=== PATIENT | female | born 1960 | race Caucasian/White ===

== ENCOUNTER 2021-09-26 07:04 | Day surgery (SDC) | payer OTHER ==
[2021-09-25 12:45] LABS: Absolute Lymphocytes (CBC) 1.9 K/uL (0.7-4.9); Basophils % 0.3 % (0-1.3); Hematocrit 38.5 % (36.0-45.0); Lymphocytes % 40.8 % (15.3-44.8); MPV 5.9 fL (7.6-11.3); RBC Red Blood Cell Count 4.35 M/uL (3.86-4.86)
[2021-09-25 12:58] LABS: Potassium 4.4 mmol/L (3.5-5.1)
--- NOTE | 2021-09-25 13:33 | RAD REPORT ---
EXAM DESCRIPTION: RAD - Chest Pa And Lat (2 Views) - 09/25/2021 12:44 pm CLINICAL HISTORY: PRE-OP, right breast mass COMPARISON: None TECHNIQUE: Frontal and lateral views of the chest were obtained. FINDINGS: The lungs are clear. Heart size is normal and central vasculature is within normal limit s. No pleural effusion or pneumothorax seen. No acute bony finding noted. No aortic abnormality. IMPRESSION: No acute cardiopulmonary process.
[2021-09-26] MEDS ORDERED: Ringers Lactate 1,000 ML IV ONE (07:21)
[2021-09-26] MEDS ORDERED: CEFAZOLIN/NS 1gm 1 GM/50 ML BAG ONE (07:21)
[2021-09-26] MEDS ORDERED: METHYLENE BLUE 0.5% 10 ML AMP ONE (09:26)
[2021-09-26] MEDS ORDERED: propofoL 200 MG/20 ML VIAL IV ONE (09:50)
[2021-09-26] MEDS ORDERED: FENTANYL CITR 100 MCG/2 ML ONE ×2 (09:50→10:46)
[2021-09-26] MEDS ORDERED: ONDANSETRON 4 MG/2 ML VIAL ONE (09:51)
[2021-09-26] MEDS ORDERED: MIDAZOLAM HCL 2 MG/2 ML INJ ONE (09:51)
[2021-09-26] MEDS ORDERED: LIDOCAINE 2% MPF 5 ML VIAL ONE (09:51)
[2021-09-26] MEDS ORDERED: NEOSTIGMINE 1 MG/ML -5 ML ONE (09:52)
[2021-09-26] MEDS ORDERED: ROCURONIUM 50 MG/5 ML VIAL IV ONE (09:52)
[2021-09-26] MEDS ORDERED: GLYCOPYRROLATE 0.2 MG/ML SYR ONE (09:52)
[2021-09-26] MEDS ORDERED: dexAMETHasone 10 MG/ML VIAL ONE (10:39)
--- NOTE | 2021-09-26 11:00 | RAD REPORT ---
EXAM DESCRIPTION: US - Brst,Preop NL Wire Init w/Guid - 09/26/2021 8:34 am CLINICAL HISTORY: Breast cancer FINDINGS: The skin, subcutaneous tissues and breast tissue were anesthetized with lidocaine. Under sonographic guidance a Kopan's hook wire was placed into the right breast mass mass within the upper inner right breast. The patient then left for the surgical department IMPRESSION: Ultrasound-guided needle wire localization of a right breast mass
[2021-09-26] MEDS ORDERED: Mastisol Adhesive Liq ONE (11:03)
--- NOTE | 2021-09-26 11:05 | RAD REPORT ---
EXAM DESCRIPTION: NM - Lymphoscintigraphy - 09/26/2021 8:07 am CLINICAL HISTORY: Breast cancer COMPARISON: None. TECHNIQUE: Four injections of 0.01 millicuries technetium filtered sulfur colloid administered into the the jasbir arerolar region of the right breast. The injections were placed at Twelve o'clock, 3 o'c lock, 6 o'clock and 9 o'clock positions. Subsequently a scintigram was obtained which demonstrated the radiotracer within these locations. IMPRESSION: Right breast lymphoscintigram.
--- NOTE | 2021-09-26 11:22 | EKG ---
Test Date: 2021-09-25 Test Time: 12:05:32 [employer] Operator: CLARITZA MEASUREMENT RESULTS: Intervals: Rate: 63 CT: 132 QRSD: 82 QT: 460 QTc: 470 Elma: P: 32 CT: 132 QRS: 69 T: 30 INTERPRETIVE STATEMENTS: Normal sinus rhythm Nonspecific ST and T wave abnormality Prolonged QT Abnormal ECG No previous ECG available for comparison Electronically Signed On 09-26-21 11:20:21 ASTROCHEMIST by Gee Stephenson
[2021-09-26] MEDS: HYDROMORPHONE HCL 1 MG/ML INJ ONE ×2 (11:56→12:04)
[2021-09-26 12:15] VITALS: TEMP 97.1
[2021-09-26] MEDS ORDERED: HYDROCODONE/APAP 7.5/325 MG TAB ONE (12:40)
[2021-09-26 13:09] VITALS: BP 110/65
[2021-09-26 13:13] VITALS: O2SAT 94
--- NOTE | 2021-09-26 16:12 | OP ---
Date of Procedure: 09/26/2021 Surgeon: Alli Grace MD Survival Equipment Repairer: MAGNO Frank Preoperative Diagnosis: Right breast cancer. Postoperative Diagnosis: Right breast cancer. Procedures: Needle localization, right breast lumpectomy and sentinel node biopsy. Estimated Blood Loss: Minimal. Specimen: [place] node which was negative for metastatic disease and right breast lumpectomy with m argins free. Findings: As above. Anesthesia: General. Complications: None. Disposition: The patient tolerated the procedure in stable condition and taken to Recovery in good g eneral condition. Procedure In Detail: The patient was brought to the OR and placed in supine position. General anest hesia begun. Prior to being the patient prepped and draped, methylene blue under sterile condition w as injected around the nipple-areolar complex and then breast was massaged and then the patient was p repped and draped in the usual sterile fashion. Then, the sentinel node counting device was used to identify the sentinel node in the right axilla. All the counts were recorded in the medical record. A 3 cm incision was made in the right axilla and a blue lymph node was identified in the deep tissue . Vascular clips were used to clamp the neurovascular attachments to the lymph node and then lymph n ode was excised. Frozen section revealed no evidence of metastatic disease. Wound irrigated. Bleed ing controlled with cautery and then 3-0 chromic used to reapproximate subcutaneous tissue and close the skin and then around the needle that was placed during needle localization, ellipse of skin media l to lateral was made approximately 8 x 3 cm. Subcutaneous tissue divided. Flaps created in all dir ections and dissection proceeded all the way down to the pectoralis fascia and the entire tissue at t he tip of the needle was excised and sent to pathology for margin check, margins were negative. The closest margin was deep one, which was approximately 5-6 mm. Wound irrigated. Bleeding controlled w ith cautery. A 3-0 chromic used to approximate the subcutaneous tissue and close the skin. Sterile dressing applied. The patient was awakened and taken to Recovery in good general condition. Discharge Note: The patient will go to Day Surgery and home when stable. Disposition: Home. Condition: Stable. Discharge Instructions: Resume home medications and diet. Activity as tolerated. No heavy lifting. Keep dressing clean and dry. Sponge bath only. Tylenol No.3 one tablet p.o. q.4 p.r.n. pain, Kefl ex 500 mg p.o. q.6. Follow up in my office in 1 week. Call for appointment. SHARLA/HARSHIL Voice ID: [id number] Report ID: [id number]
== END 2021-09-26 13:04 | disposition home or self-care (01) ==
LOC: OR 07:04
PROVIDERS: ATTEND Surgery
PROC: 0HBT0ZZ Excision of Right Breast, Open Approach (ICD-10-PCS; principal; 2021-09-26 09:30)
PROC: 07B50ZX Excision of Right Axillary Lymphatic, Open Approach, Diagnostic (ICD-10-PCS; 2021-09-26 09:30)
DX: D05.11 Intraductal carcinoma in situ of right breast (principal)
CPT/HCPCS: 93005; 85025; 80048; 36415; 88307; 88333; 88334; 71046; 19285; 78195; 19301; 38525; 38900; J2704; J2250; J3010; J1100; J1170; J2710; J0690; J7120; J2405; A9541; 88305

== ENCOUNTER 2021-10-24 07:20 | Day surgery (SDC) | payer OTHER ==
[2021-10-22 14:07] LABS: Absolute Lymphocytes (CBC) 1.6 K/uL (0.7-4.9); Basophils % 0.3 % (0-1.3); Hematocrit 37.6 % (36.0-45.0); Lymphocytes % 36.1 % (15.3-44.8); MPV 6.1 fL (7.6-11.3); RBC Red Blood Cell Count 4.23 M/uL (3.86-4.86)
[2021-10-24] MEDS ORDERED: ACETAMINOPHEN 500 MG TAB ONE (07:50)
[2021-10-24] MEDS ORDERED: CELECOXIB 100 MG CAPSULE ONE (07:50)
[2021-10-24] MEDS ORDERED: Ringers Lactate 1,000 ML IV ONE (07:50)
[2021-10-24] MEDS ORDERED: CELECOXIB 100 MG CAPSULE PO ONE (08:02)
[2021-10-24] MEDS ORDERED: ACETAMINOPHEN 500 MG TAB PO ONE (08:02)
[2021-10-24] MEDS ORDERED: NS 0.9% VIAL 20 ML ONE (08:44)
[2021-10-24] MEDS ORDERED: LIDOCAINE 1% 20 ML MDV ONE (08:45)
[2021-10-24] MEDS ORDERED: LIDOCAINE 2% MPF 5 ML VIAL ONE (09:07)
[2021-10-24] MEDS ORDERED: propofoL 200 MG/20 ML VIAL IV ONE (09:07)
[2021-10-24] MEDS ORDERED: MIDAZOLAM HCL 2 MG/2 ML INJ ONE (09:07)
[2021-10-24] MEDS ORDERED: FENTANYL CITR 100 MCG/2 ML ONE (09:07)
[2021-10-24] MEDS ORDERED: GLYCOPYRROLATE 0.2 MG/ML SYR ONE (09:09)
[2021-10-24] MEDS: CEFAZOLIN/NS 1gm 1 GM/50 ML BAG ONE ×2 (09:21→09:45)
[2021-10-24] MEDS ORDERED: dexAMETHasone 10 MG/ML VIAL ONE (09:53)
[2021-10-24] MEDS: HEPARIN 5000 UNIT/ML 1 ML VIAL ONE ×3 (09:59→10:08)
[2021-10-24] MEDS ORDERED: ONDANSETRON 4 MG/2 ML VIAL ONE (10:08)
[2021-10-24] MEDS ORDERED: Mastisol Adhesive Liq ONE (10:08)
--- NOTE | 2021-10-24 10:50 | RAD REPORT ---
EXAM DESCRIPTION: RAD - Fluoroscopy <1 Hour - 10/24/2021 10:35 am CLINICAL HISTORY: Device placement central venous catheter placement FINDINGS: A central venous catheter was placed into the superior vena cava. Three fluoroscopic spot images are submitted. The examination was performed by Dr. Grace. Fluoroscopy time minutes
--- NOTE | 2021-10-24 10:53 | OP ---
Date of Procedure: 10/24/2021 Surgeon: Alli Grace MD Two Needle Machine Operator: MAGNO Stanton. Preoperative Diagnosis: Right breast cancer. Postoperative Diagnosis: Right breast cancer. Procedure: Left internal jugular Port-A-Cath placement and interpretation, intraoperative fluoroscop y. Estimated Blood Loss: Minimal. Specimens: None. Findings: Normal anatomy. Anesthesia: General. Complications: None. Condition: Patient tolerated the procedure in stable condition. Taken to Recovery in good general c ondition. Operative Report: The patient was brought to the OR and placed in supine position. General anesthes ia began. The patient was prepped and draped in usual sterile fashion. Marcaine 0.5% was infiltrate d locally for postop pain control. 18-gauge needle was used to access the left IJ vein, guidewire pa ssed, position confirmed with fluoroscopy. A 3 cm counter incision was made on the left anterior mitzy st, subcutaneous tissue divided, pocket created. Tunneling device used to tunnel the catheter betwee n the two wounds. Seldinger technique used. Tip of the catheter placed in the SVC under fluoroscopy . After appropriate size, attached to the Port-A-Cath device. Port-A-Cath device attached to the savage bcutaneous tissue with 3-0 Vicryl and 2-0 chromic used to approximate the subcutaneous tissue and dalton se the skin. The port flushed with heparin and packed with heparin with good blood flow. Sterile dr essing applied. Patient awakened and taken to Recovery in good general condition. Chest x-ray has b een ordered. The patient will be discharged to home. Disposition: Home. Condition: Stable. Discharge Instructions: Resume home medications and diet. Activity as tolerated. No heavy lifting. Remove outer dressing in 2 days. Shower. Keep wound clean and dry. Follow up in my office in 2 w eeks. Call for appointment. Follow up in [facility]. Keep Steri-Strips on at all times. Noah guidry No 3 one tablet p.o. q.4 p.r.n. pain. /MODL Voice ID: [id number] Report ID: [id number]
--- NOTE | 2021-10-24 11:08 | RAD REPORT ---
EXAM DESCRIPTION: PUNEETCydneyt Single View10/24/2021 10:51 am CLINICAL HISTORY: Device placement/central venous catheter placement IMPRESSION: Central venous catheter with its tip in the superior vena cava No pneumothorax
[2021-10-24] MEDS ORDERED: CODEINE 30MG/APAP 300MG TAB ONE (11:47)
[2021-10-24 12:34] VITALS: BP 113/70; TEMP 97.6; O2SAT 96
== END 2021-10-24 12:01 | disposition home or self-care (01) ==
LOC: OR 07:20
PROVIDERS: ATTEND Surgery
PROC: 0JH60WZ Insertion of Totally Implantable Vascular Access Device into Chest Subcutaneous Tissue and Fascia, Open Approach (ICD-10-PCS; principal; 2021-10-24 08:30)
DX: C50.911 Malignant neoplasm of unspecified site of right female breast (principal)
CPT/HCPCS: 36561; 85025; 36415; 71045; 76000; J2704; J1644 ×2; J2250; J3010; J1100; J0690; J7120; J2405; C1788

== ENCOUNTER 2021-12-12 10:41 | Observation (INO) | payer OTHER ==
--- OUTSIDE RECORDS SUMMARY | 2021-12-12 10:45 | XMS REPORT | Continuity of Care Document ---
:1960 Author Organization [facility] t Address [address] [place] [address] Care Team Providers Name Role Phone Unavailable Unavailable Unavailable Payers Payer Name Policy Type Policy Number Effective Date Expiration Date S don [employer] PPO I [id number] 2009 00:00:00 Problems This patient has no known problems. Allergies, Adverse Reactions, Alerts Allergy Allergy Status Severity Reaction(s) Onset Inactive Treating Comm ents Source Name Type Date Date Clinician NO KNOWN Drug Active [facility] ALLERGIE Class [facility] of [facility] Medications Ordered Filled Start Stop Current Ordering Indication Dosage Frequency Signature Comments Components Source Medication Medication Date Date Medication? Clinician (SIG) Name Name Venlafaxine Venlafaxine Yes Saqib [address] [facility] HCl [facility] Simvastatin Simvastatin Yes Saqib [address] [facility] Immunizations Ordered Filled Immunization Date Status Comments Sourc e Immunization Name Name TDAP > 7 TDAP > 7 2020-01-[address] [facility] - Years-Adacel Years-Adacel 00:00:00 [facility] Afluria single dose Afluria single dose 2019-09-[address] [facility] Procedures This patient has no known procedures. Encounters Start End Encounter Admission Attending Care Care Encounter Source Date/Time Date/Time Type Type Clinicians Facility Department ID 2021-09-26 2021-09-26 ambulatory [facility] [id number] [facility] 2021-09-13 2021-09-13 amb[facility] [id number] [facility] 2021-09-06 2021-09-06 Out[facility] [id number] [facility] 2021-09-06 2021-09-06 Out[facility] [id number] [facility] 2021-08-01 2021-08-01 Out[facility] [id number] [facility] 2021 2021 Outpatient [facility] [id number] [facility] 2021-07-20 2021-07-20 [facility] [id number] [facility] 2021-07-17 2021-07-17 Out[facility] [id number] [facility] 2021-07-16 2021-07-16 Out[facility] [id number] [facility] 2021-07-12 2021-07-12 Out[facility] [id number] [facility] 2021-07-12 2021-07-12 Out[facility] [id number] [facility] 2021-07-05 2021-07-05 [facility] [id number] [facility] 2021-06-18 2021-06-18 Out[facility] [id number] [facility] 2021-05-07 2021-05-07 Out[facility] [id number] [facility] 2021-03-06 2021-03-06 Out[facility] [id number] [facility] 2021-02-14 2021-02-14 Out[facility] [id number] [facility] 2021-01-31 2021-01-31 Out[facility] [id number] [facility] 2021-01-24 2021-01-24 Outpatient [facility] [id number] [facility] 2020-12-18 2020-12-18 Outpatient [facility] [id number] [facility] 2020-11-20 2020-11-20 Out[facility] [id number] [facility] 2020-11-12 2020-11-12 Emergency X [facility] ERT [id number] 14[facility]25:00 14:25:00 [facility] 2020-11-01 2020-11-01 Outpatient [facility] [id number] [facility] 2020-10-26 2020-10-26 Outpatient [facility] [id number] [facility] 2020-10-18 2020-10-18 Outpatient [facility] [id number] [facility] 2020-10-04 2020-10-04 Outpatient [facility] [id number] [facility] 2020-09-20 2020-09-20 Outpatient [facility] [id number] [facility] 2020-08-30 2020-08-30 Outpatient [facility] [id number] [facility] 2020-05-02 2020-05-02 [facility] [id number] [facility] 09:30:00 09:30:00 [facility] Outpati [facility] Clinics 2020-02-02 2020-02-02 [facility] [id number] [facility] 16:55:00 16:55:00 t [facility] Outpat[facility] Clinics 2020-01-31 2020-01-31 [facility] [id number] [facility] 09:30:00 09:30:00 t [facility] Outpati ent Clinics 2019-09-28 2019-09-28 [facility] [id number] [facility] 09:30:00 09:30:00 t [facility] Outpat[facility] ent Clinics Results This patient has no known results.
[2021-12-12] MEDS ORDERED: NA CHLORIDE 0.9% 1,000 ML ONE (11:59)
[2021-12-12 12:06] LABS: Absolute Lymphocytes (CBC) 0.2 K/uL (0.7-4.9); Hematocrit 32.7 % (36.0-45.0); Lymphocytes % 1.2 % (15.3-44.8); MPV 5.9 fL (7.6-11.3); RBC Red Blood Cell Count 3.54 M/uL (3.86-4.86)
[2021-12-12 12:09] LABS: Protime INR 0.96
[2021-12-12 12:24] LABS: ALT/SGPT 32 U/L (12-78); AST/SGOT 15 U/L (15-37); Albumin 3.1 g/dL (3.4-5.0); Alkaline Phosphatase 162 U/L (45-117); Amylase 39 U/L (25-115); BUN Blood Urea Nitrogen 14 mg/dL (7-18); Bicarbonate 26 mmol/L (21-32); Bilirubin Direct < 0.1 mg/dL (0-0.2); Bilirubin Total 0.3 mg/dL (0.2-1.0); Creatine Phosphokinase 23 U/L (26-192); Glucose Level 117 mg/dL (74-106); Lipase 39 U/L (73-393); Potassium 3.9 mmol/L (3.5-5.1); Protein, Total 6.7 g/dL (6.4-8.2); Sodium Level 136 mmol/L (136-145)
[2021-12-12 12:25] LABS: CKMB Creatine Kinase MB < 1.0 ng/mL (1.0-3.6)
--- NOTE | 2021-12-12 12:58 | RAD REPORT ---
EXAM DESCRIPTION: RAD - Chest Single View - 12/12/2021 12:44 pm CLINICAL HISTORY: CONGESTION Chest pain. COMPARISON: Chest Single View dated 10/24/2021; Chest Pa And Lat (2 Views) dated 09/25/2021; Breast Bi lat W Wo Cont dated 09/20/2021 FINDINGS: Portable technique limits examination quality. Subtle interstitial prominence bilaterally is seen which could indicate a viral infection. The heart is upper limit normal in size. Left-sided port catheter its tip in the SVC.
[2021-12-12 13:12] LABS: Urine Blood Negative (Negative); Urine Glucose Negative (Negative); Urine Protein Negative (Negative); Urine pH 6.5 (5.0-7.0)
[2021-12-12 13:27] LABS: Urine Bacteria NONE SEEN /HPF (<20); Urine RBC NONE SEEN /HPF (NONE SEEN)
[2021-12-12 13:33] LABS: Platelet Estimate DECR
[2021-12-12 13:34] LABS: Anisocytosis 1+; Blood Morphology Comment NOTED (NOT SEEN); Polychromasia 1+; Toxic Granulation 1+
[2021-12-12] MEDS ORDERED: AZITHROMYCIN 500 MG INJ IVPB ONE (13:44)
[2021-12-12] MEDS ORDERED: CEFTRIAXONE 1000 MG/VIAL ONE (13:44)
[2021-12-12] MEDS ORDERED: NA CHLORIDE 0.9% 250 ML ONE (13:45)
--- NOTE | 2021-12-12 14:42 | EDPHYS ---
Physician Documentation [facility] Name: Bernadette Thomas Age: 61 yrs Sex: Female : 1960 Arrival Date: 12/12/2021 Time: 10:42 Bed 27 Private MD: [facility] ED Physician Denia Pires HPI: 12/12 11:57 This 61 yrs old Unknown Female presents to ER via Ambulatory with complaints of Fever. ma2 11:57 61, with history of breast cancer received chemotherapy weekly last dose was 4 days ma2 ago, presents with fever 100.5 since this morning, has mild cough no other symptoms, symptoms are constant and mild.. Historical: - Allergies: 10:58 No Known Allergies; jd3 - Home Meds: 10:58 steroid [Active]; chemo [Active]; jd3 - PMHx: 10:58 breast cancer; high cholesteral; jd3 - PSHx: 10:58 None; jd3 - Immunization history:: Adult Immunizations up to date, Client reports having NOT received the Covid vaccine. Flu vaccine is not up to date. - Social history:: Smoking status: Patient denies any tobacco usage or history of. - Family history:: not pertinent. ROS: 11:57 Constitutional: Negative for fever, chills, and weight loss. ma2 11:57 All other systems are negative. Exam: 11:57 Constitutional: This is a well developed, well nourished patient who is awake, alert, ma2 and in no acute distress. Head/Face: Normocephalic, atraumatic. Eyes: Pupils equal round and reactive to light, extra-ocular motions intact. Lids and lashes normal. Conjunctiva and sclera are non-icteric and not injected. Cornea within normal limits. Periorbital areas with no swelling, redness, or edema. ENT: Nares patent. No nasal discharge, no septal abnormalities noted. Tympanic membranes are normal and external auditory canals are clear. Oropharynx with no redness, swelling, or masses, exudates, or evidence of obstruction, uvula midline. Mucous membranes moist. Neck: Trachea midline, no thyromegaly or masses palpated, and no cervical lymphadenopathy. Supple, full range of motion without nuchal rigidity, or vertebral point tenderness. No Meningismus. Chest/axilla: Normal chest wall appearance and motion. Nontender with no deformity. No lesions are appreciated. Cardiovascular: Regular rate and rhythm with a normal S1 and S2. No gallops, murmurs, or rubs. Normal PMI, no JVD. No pulse deficits. Respiratory: Lungs have equal breath sounds bilaterally, clear to auscultation and percussion. No rales, rhonchi or wheezes noted. No increased work of breathing, no retractions or nasal flaring. Abdomen/GI: Soft, non-tender, with normal bowel sounds. No distension or tympany. No guarding or rebound. No evidence of tenderness throughout. Skin: Warm, dry with normal turgor. Normal color with no rashes, no lesions, and no evidence of cellulitis. MS/ Extremity: Pulses equal, no cyanosis. Neurovascular intact. Full, normal range of motion. Neuro: Awake and alert, GCS 15, oriented to person, place, time, and situation. Cranial nerves II-XII grossly intact. Motor strength 5/5 in all extremities. Sensory grossly intact. Cerebellar exam normal. Normal gait. Vital Signs: 10:59 BP 107 / 66; Pulse 100; Resp 18 S; Temp 99.4(TE); Pulse Ox 97% on R/A; Weight 86.64 kg jd3 (R); Height 5 ft. 5 in. (165.10 cm) (R); Pain 0/10; 12:01 BP 110 / 59; Pulse 78; Resp 16; Pulse Ox 96% on R/A; Pain 0/10; ab2 13:12 BP 111 / 62; Pulse 75; Resp 16; Temp 98.8(O); Pulse Ox 96% ; Pain 0/10; ab2 14:13 BP 106 / 55; Pulse 81; Resp 16; Pulse Ox 100% on R/A; ab2 15:35 BP 97 / 55; Pulse 84; Resp 16; Pulse Ox 95% on R/A; ab2 16:34 BP 116 / 71; Pulse 90; Resp 16; Pulse Ox 98% on R/A; ab2 10:59 Body Mass Index 31.78 (86.64 kg, 165.10 cm) jd3 MDM: 11:30 Patient medically screened. [facility] 14:34 Differential diagnosis: viral Infection, URI, bronchitis, pneumonia. Data reviewed: ma2 vital signs, nurses notes. Counseling: I had a detailed discussion with the patient and/or guardian regarding: the historical points, exam findings, and any diagnostic results supporting the discharge/admit diagnosis, the presence of at least one elevated blood pressure reading (>120/80) during this emergency department visit, the need for outpatient follow up. Response to treatment: the patient's symptoms have markedly improved after treatment. 14:40 ED course: Patient has UTI, white count is 20,000 I discussed with Anastacio alvarez oncologist and she recommends IV antibiotics, admission overnight for observation. Covid is negative. 12/12 11:29 Order name: Amylase, Serum; Complete Time: 13:12/12 11:29 Order name: Basic Metabolic Panel; Complete Time: 13:12/12 11:29 Order name: Blood Culture Adult (2) 12/12 11:29 Order name: CBC with Diff; Complete Time: 13:37 12/12 11:29 Order name: CPK; Complete Time: 13:12/12 11:29 Order name: Ckmb; Complete Time: 13:12/12 11:29 Order name: LFT's; Complete Time: 13:33 12/12 11:29 Order name: Lactate; Complete Time: 13:33 12/12 11:29 Order name: Lipase; Complete Time: 13:12/12 11:29 Order name: Procalcitonin; Complete Time: 13:33 12/12 11:29 Order name: Protime (+inr); Complete Time: 13:12/12 11:29 Order name: Ptt, Activated; Complete Time: 13:12/12 11:29 Order name: Troponin HS; Complete Time: 13:33 12/12 11:29 Order name: Urine Microscopic Only; Complete Time: 13:33 12/12 11:29 Order name: Chest Single View XRAY; Complete Time: 13:33 12/12 11:29 Order name: Accucheck; Complete Time: 11:59 12/12 11:29 Order name: Cardiac monitoring; Complete Time: 11:53 12/12 11:29 Order name: EKG - Nurse/Tech; Complete Time: 11:53 wi2 12/12 11:29 Order name: IV Saline Lock - Large Bore; Complete Time: 11:53 wi2 12/12 11:29 Order name: Labs collected and sent; Complete Time: 11:53 wi2 12/12 11:29 Order name: O2 Per Protocol; Complete Time: 11:53 wi2 12/12 11:29 Order name: SARS-COV-2 RT PCR (Document "Date of Onset" if Symptomatic); Complete Time: ma2 14:33 12/12 13:12 Order name: Urine Dipstick-Ancillary; Complete Time: 13:33 EDME 12/12 13:33 Order name: Manual Differential; Complete Time: 13:37 EDME 12/12 19:00 Order name: ABG Arterial Blood Gas EDME 12/13 02:50 Order name: CBC with Automated Diff EDMS 12/13 03:03 Order name: Comprehensive Metabolic Panel [facility] 12/12 11:29 Order name: O2 Sat Monitoring; Complete Time: 11:53 [facility] 12/12 11:29 Order name: Urine Dipstick-Ancillary (obtain specimen); Complete Time: 13:12 ma2 Administered Medications: 11:59 Drug: NS 0.9% 1000 ml Route: IV; Rate: 1 bolus; Site: left antecubital; ab2 13:51 Drug: Rocephin (cefTRIAXone) 1 grams Route: IV; Rate: calculated rate; Site: left ab2 antecubital; 13:51 Drug: AZITHromycin 500 mg Route: IVPB; Infused Over: 1 hrs; Site: left antecubital; ab2 Disposition Summary: 12/12/21 14:41 Hospitalization Ordered Hospitalization Status: Observation ma2 Provider: Juarez Morejon Condition: Stable ma2 Problem: new ma2 Symptoms: are unchanged ma2 Bed/Room Type: Standard wi2 Location: [facility] ER HOLD(12/13/21 15:51) dw Room Assignment: (12/13/21 15:51) dw Diagnosis - Other pneumonia, unspecified organism ma2 - Elevated white blood cell count, unspecified ma2 Forms: - Medication Reconciliation Form ma2 - SBAR form ma2 Signatures: Dispatcher [employer] EDME Janett Bush Diana, RN RN dw Davies, Jonathon, RN RN jd3 Alzahri, Mohammad, MD MD ma2 Gildardo Pinzon ab2 Corrections: (The following items were deleted from the chart) 17:10 14:41 Tele[facility]MedSurg (observation) [facility] 17:10 14:41 [facility] 12/13 14:16 12/12 17:10 [facility] ER HOLD [facility] 12/13 14:16 12/12 17:10 ERHOLD- bd 12/13 15:51 14:16 Telemetry/MedSurg (observation) [facility] 15:51 14:16 212 [facility]
--- NOTE | 2021-12-12 14:42 | ER ---
Nurse's Notes [facility] Name: Bernadette Thomas Age: 61 yrs Sex: Female : 1960 Arrival Date: 12/12/2021 Time: 10:42 Bed 27 Private MD: Saqib Mann Diagnosis: Other pneumonia, unspecified organism;Elevated white blood cell count, unspecified Presentation: 12/12 10:56 Chief complaint: Patient states: "I started running a fever this morning. fever high of jd3 100.3. yall will need to call Dr. Burgess over at the cancer center here in town.". Coronavirus screen: cough unrelated to allergies, headache, Client presents with at least one sign or symptom that may indicate coronavirus-19. Standard/surgical mask placed on the client. Provider contacted for isolation considerations. Ebola Screen: No symptoms or risks identified at this time. Initial Sepsis Screen: Does the patient meet any 2 criteria? No. Patient's initial sepsis screen is negative. Does the patient have a suspected source of infection? No. Patient's initial sepsis screen is negative. Risk Assessment: Do you want to hurt yourself or someone else? Patient reports no desire to harm self or others. Onset of symptoms was December 12, 2021. 10:56 Method Of Arrival: Ambulatory jd3 10:56 Acuity: JIMI 3 jd3 Historical: - Allergies: 10:58 No Known Allergies; jd3 - Home Meds: 10:58 steroid [Active]; chemo [Active]; jd3 - PMHx: 10:58 breast cancer; high cholesteral; jd3 - PSHx: 10:58 None; jd3 - Immunization history:: Adult Immunizations up to date, Client reports having NOT received the Covid vaccine. Flu vaccine is not up to date. - Social history:: Smoking status: Patient denies any tobacco usage or history of. - Family history:: not pertinent. Screenin:01 Abuse screen: Denies threats or abuse. Denies injuries from another. Nutritional ab2 screening: No deficits noted. Tuberculosis screening: No symptoms or risk factors identified. Fall Risk None identified. Assessment: 11:59 General: Appears in no apparent distress. comfortable, Behavior is calm, cooperative, ab2 appropriate for age. Pain: Denies pain. Neuro: Level of Consciousness is awake, alert, obeys commands, Oriented to person, place, time, situation, Appropriate for age Home Health Scheduler are equal bilaterally Moves all extremities. Gait is steady. Cardiovascular: No deficits noted. Denies chest pain, shortness of breath, Heart tones S1 S2 present Patient's skin is warm and dry. Chest pain is denied. Respiratory: Airway is patent. GI: No deficits noted. No signs and/or symptoms were reported involving the gastrointestinal system. : No deficits noted. No signs and/or symptoms were reported regarding the genitourinary system. EENT: No deficits noted. No signs and/or symptoms were reported regarding the EENT system. Derm: Parent/caregiver reports the patient having Pt reports fever of 100.5. Musculoskeletal: No deficits noted. No signs and/or symptoms reported regarding the musculoskeletal system. Vital Signs: 10:59 BP 107 / 66; Pulse 100; Resp 18 S; Temp 99.4(TE); Pulse Ox 97% on R/A; Weight 86.64 kg jd3 (R); Height 5 ft. 5 in. (165.10 cm) (R); Pain 0/10; 12:01 BP 110 / 59; Pulse 78; Resp 16; Pulse Ox 96% on R/A; Pain 0/10; ab2 13:12 BP 111 / 62; Pulse 75; Resp 16; Temp 98.8(O); Pulse Ox 96% ; Pain 0/10; ab2 14:13 BP 106 / 55; Pulse 81; Resp 16; Pulse Ox 100% on R/A; ab2 15:35 BP 97 / 55; Pulse 84; Resp 16; Pulse Ox 95% on R/A; ab2 16:34 BP 116 / 71; Pulse 90; Resp 16; Pulse Ox 98% on R/A; ab2 10:59 Body Mass Index 31.78 (86.64 kg, 165.10 cm) jd3 ED Course: 10:42 Patient arrived in ED. am2 10:43 Saqib Mann DO is Private Physician. am2 10:58 Triage completed. jd3 11:00 Arm band placed on. jd3 11:03 Gildardo Pinzon is Primary Nurse. ab2 11:28 Denia Pires MD is Attending Physician. ma2 11:33 Darrin Martinez PA is PHCP. cp 11:53 Amylase, Serum Sent. ab2 11:53 Basic Metabolic Panel Sent. ab2 11:53 Blood Culture Adult (2) Sent. ab2 11:53 CBC with Diff Sent. ab2 11:53 CPK Sent. ab2 11:53 Ckmb Sent. ab2 11:53 LFT's Sent. ab2 11:53 Lactate Sent. ab2 11:53 Lipase Sent. ab2 11:53 Procalcitonin Sent. ab2 11:53 Protime (+inr) Sent. ab2 11:53 Ptt, Activated Sent. ab2 11:53 Troponin HS Sent. ab2 11:56 SARS-COV-2 RT PCR (Document "Date of Onset" if Symptomatic) Sent. ab2 12:01 Patient has correct armband on for positive identification. Bed in low position. Call ab2 light in reach. Side rails up X2. Adult w/ patient. 12:01 No provider procedures requiring assistance completed. Inserted saline lock: 20 gauge ab2 in left antecubital area, using aseptic technique. 12:44 Chest Single View XRAY In Process Unspecified. EDMS 13:12 Urine Microscopic Only Sent. ab2 14:41 Juarez Morejon is Hospitalizing Provider. ma2 Administered Medications: 11:59 Drug: NS 0.9% 1000 ml Route: IV; Rate: 1 bolus; Site: left antecubital; ab2 13:51 Drug: Rocephin (cefTRIAXone) 1 grams Route: IV; Rate: calculated rate; Site: left ab2 antecubital; 13:51 Drug: AZITHromycin 500 mg Route: IVPB; Infused Over: 1 hrs; Site: left antecubital; ab2 Outcome: 14:41 Decision to Hospitalize by Provider. ma2 12/13 16:09 Patient left the ED. 5 Signatures: Dispatcher [employer] EDMS Darrin Martinez PA PA cp Martinez, Maria 5 Colleen Baker am2 Rocky Lopez RN RN Denia Comer MD MD ma2 Gildardo Pinzon ab2 Corrections: (The following items were deleted from the chart) 12/12 10:59 10:56 Chief complaint: Patient states: "I started running a fever this morning. fever jd3 high of 100.3. yall will need to call Dr. Danielle over at the cancer center here in town." jd3
--- NOTE | 2021-12-12 17:01 | P.HP ---
Certification for Inpatient Patient admitted to: Inpatient With expected LOS: >2 Midnights Practitioner: I am a practitioner with admitting privileges, knowledge of patient current condition, hospital course, and medical plan of care. Services: Services provided to patient in accordance with Admission requirements found in Title 42 Section 412.3 of the Code of Federal Regulations Patient History Date of Service: 12/12/21 Reason for admission: Fever History of Present Illness: 61-year-old old woman with a history of breast cancer, receiving chemotherapy presented to the emergency department with a complaint of fever, nonproductive cough and general malaise. Symptoms have been present for about a couple of days. Blood work done in the emergency department demonstrated leukocytosis with WBC of 20,000. Temperature of 99.4 recorded in the ED. Sepsis screen: Lactate within normal limits, UA shows no evidence of UTI, chest x-ray demonstrated bilateral infiltrate suggestive of viral pneumonia. She tested negative for COVID-19. There is a concern for sepsis given elevated WBC in the context of immunosuppression from chemo. Patient is hospitalized for further evaluation and management. Allergies No Known Allergies Allergy (Verified 10/24/21 08:53) Home Medications: Simvastatin 20 mg PO BEDTIME 09/25/21 Venlafaxine HCl [Effexor] 1 tab PO BEDTIME 09/25/21 - Past Medical/Surgical History -: Breast cancer -: Hypertension -: Anxiety -: Hyperlipidemia -: Port-A-Cath - Family History Mother -: Cancer Father -: Cancer - Social History Smoking Status: Never smoker Alcohol use: No CD- Drugs: No Place of Residence: Home Review of Systems Other: Patient denies any diarrhea, no nausea or vomiting. She denied any abdominal pain. Except as documented, all other systems reviewed and negative. Physical Examination - Physical Exam General: Alert, In no apparent distress, Oriented x3 HEENT: Atraumatic, Normocephalic, PERRLA, Mucous membr. moist/pink, EOMI, Sclerae nonicteric Neck: Supple, JVD not distended Respiratory: Clear to auscultation bilaterally, Normal air movement Cardiovascular: Regular rate/rhythm, Normal S1 S2, No murmurs Gastrointestinal: Soft and benign, Non-distended, No tenderness Musculoskeletal: No swelling Integumentary: No rashes, No erythema, No cyanosis Neurological: Normal speech, Normal strength at 5/5 x4 extr, Cranial nerves 3-12 intact Lymphatics: No axilla or inguinal lymphadenopathy - Studies Laboratory Data (last 24 hrs) 12/12/21 11:50: PT 11.0, INR 0.96, APTT 25.5 12/12/21 11:50: WBC 20.00 H, Hgb 10.7 L, Hct 32.7 L, Plt Count 137 L 12/12/21 11:50: Sodium 136, Potassium 3.9, BUN 14, Creatinine 0.74, Glucose 117 H, Total Bilirubin 0.3, AST 15, ALT 32, Alkaline Phosphatase 162 H, Amylase 39, Lipase 39 L Assessment and Plan - Problems (Diagnosis) (1) Sepsis Current Visit: Yes Status: Acute (2) Pneumonia Current Visit: Yes Status: Acute - Plan Patient to the medical floor. Sepsis protocol initiated in the ED. Blood cultures obtained. Continue IV hydration. Will cover with broad-spectrum antibiotics as we wait for blood culture to result. Pneumonia appears to be viral related. Antibiotics will cover pneumonia. COVID-19 is negative. Supportive measures. Monitor CBC to follow leukocytosis. Monitor and optimize electrolytes. - Advance Directives Does patient have a Living Will: No Does patient have a Durable POA for Healthcare: No
[2021-12-12 18:49] VITALS: BMI 31.6
[2021-12-12 18:59] LABS: Arterial Blood Carboxyhemoglob 1.2 % (0-1.5); Blood Gas Oxyhemoglobin 93.1 % (94-97); Blood O2 Saturation 95.5 % (92-98.5)
[2021-12-12] MEDS: ENOXAPARIN 40 MG/0.4 ML SQ SCH (20:00)
[2021-12-12] MEDS ORDERED: VANCOMYCIN 2.25 GM in NA CHLORIDE 0.9% 500 ML IVPB ONE (20:00)
[2021-12-12] MEDS: CEFEPIME 2 GM in NA CHLORIDE 0.9% 100 ML IV SCH (20:00)
[2021-12-12] MEDS ORDERED: VANCOMYCIN 1 GM in NA CHLORIDE 0.9% 250 ML IVPB SCH (21:00)
[2021-12-12] MEDS ORDERED: CEFEPIME 1 GM/VIAL ONE (21:15)
[2021-12-12] MEDS ORDERED: ENOXAPARIN 40 MG/0.4 ML SQ ONE (21:17)
[2021-12-12] MEDS ORDERED: NA CHLORIDE 0.9% 100 ML ONE ×2 (21:19)
[2021-12-13] MEDS: CEFEPIME 2 GM in NA CHLORIDE 0.9% 100 ML IV SCH ×2 (01:00→10:11)
[2021-12-13] MEDS: NA CHLORIDE 0.9% 1,000 ML IV SCH ×2 (02:40→10:40)
[2021-12-13 02:41] LABS: Absolute Lymphocytes (CBC) 0.6 K/uL (0.7-4.9); Hematocrit 30.9 % (36.0-45.0); Lymphocytes % 3.4 % (15.3-44.8); MPV 6.2 fL (7.6-11.3); RBC Red Blood Cell Count 3.33 M/uL (3.86-4.86)
[2021-12-13 03:03] LABS: ALT/SGPT 28 U/L (12-78); AST/SGOT 16 U/L (15-37); Albumin 2.8 g/dL (3.4-5.0); Alkaline Phosphatase 140 U/L (45-117); BUN Blood Urea Nitrogen 15 mg/dL (7-18); Bicarbonate 28 mmol/L (21-32); Bilirubin Total 0.3 mg/dL (0.2-1.0); Glucose Level 90 mg/dL (74-106); Potassium 4.3 mmol/L (3.5-5.1); Protein, Total 6.2 g/dL (6.4-8.2); Sodium Level 139 mmol/L (136-145)
[2021-12-13] MEDS ORDERED: INFLUENZA VACCINE (for 6+ mo) 0.5 ML DOSE IMVAC ONE (08:00)
[2021-12-13] MEDS: ENOXAPARIN 40 MG/0.4 ML SQ SCH (10:12)
[2021-12-13] MEDS ORDERED: ENOXAPARIN 40 MG/0.4 ML SQ ONE (10:13)
[2021-12-13 12:38] VITALS: O2SAT 96
[2021-12-13 13:48] VITALS: BP 118/62
[2021-12-13] MEDS ORDERED: NA CHLORIDE 0.9% 1,000 ML ONE (13:48)
[2021-12-13] MEDS ORDERED: VANCOMYCIN 1.75 GM in NA CHLORIDE 0.9% 500 ML IVPB SCH (14:00)
--- NOTE | 2021-12-13 14:58 | P.DS ---
Admission Date: 12/12/21 Discharge Date: 12/13/21 Disposition: ROUTINE DISCHARGE Discharge Condition: FAIR Reason for Admission: Fever - Problems (1) Sepsis Current Visit: Yes Status: Acute (2) Pneumonia Current Visit: Yes Status: Acute Brief History of Present Illness: 61-year-old old woman with a history of breast cancer, receiving chemotherapy presented to the emergency department with a complaint of fever, nonproductive cough and general malaise. Symptoms have been present for about a couple of days. Blood work done in the emergency department demonstrated leukocytosis with WBC of 20,000. Temperature of 99.4 recorded in the ED. Sepsis screen: Lactate within normal limits, UA shows no evidence of UTI, chest x-ray demonstrated bilateral infiltrate suggestive of viral pneumonia. She tested negative for COVID-19. There is a concern for sepsis given elevated WBC in the context of immunosuppression from chemo. Patient is hospitalized for further evaluation and management. Hospital Course: Placed on observation on the medical floor and treated with broad-spectrum IV antibiotics-IV vancomycin and IV cefepime. Blood culture yielded no growth. WBC count trended down. Patient was afebrile and asymptomatic throughout the hospital stay. She requested to go home. No source of infection identified except viral pneumonia patented chest x-ray. Will discharge patient per her request with oral Augmentin. Vital Signs/Physical Exam: Temp Pulse Resp BP Pulse Ox 97.9 F 87 24 H 118/62 99 12/12/21 18:42 12/13/21 12:00 12/13/21 12:00 12/13/21 12:00 12/13/21 12:00 General: Alert, In no apparent distress, Oriented x3 HEENT: Mucous membr. moist/pink Neck: JVD not distended Respiratory: Clear to auscultation bilaterally, Normal air movement Cardiovascular: No edema, Regular rate/rhythm, Normal S1 S2 Gastrointestinal: Normal bowel sounds, Soft and benign, Non-distended, No tenderness Musculoskeletal: No swelling Integumentary: No rashes Neurological: Normal strength at 5/5 x4 extr Laboratory Data at Discharge: WBC 17.00 K/uL (4.3-10.9) H D 12/13/21 02:16 Hgb 10.1 g/dL (12.0-15.0) L 12/13/21 02:16 Hct 30.9 % (36.0-45.0) L 12/13/21 02:16 Plt Count 135 K/uL (152-406) L 12/13/21 02:16 PT 11.0 SECONDS (9.5-12.5) 12/12/21 11:50 INR 0.96 12/12/21 11:50 APTT 25.5 SECONDS (24.3-36.9) 12/12/21 11:50 Sodium 139 mmol/L (136-145) 12/13/21 02:16 Potassium 4.3 mmol/L (3.5-5.1) 12/13/21 02:16 BUN 15 mg/dL (7-18) 12/13/21 02:16 Creatinine 0.63 mg/dL (0.55-1.3) 12/13/21 02:16 Glucose 90 mg/dL (74-106) 12/13/21 02:16 Total Bilirubin 0.3 mg/dL (0.2-1.0) 12/13/21 02:16 AST 16 U/L (15-37) 12/13/21 02:16 ALT 28 U/L (12-78) 12/13/21 02:16 Alkaline Phosphatase 140 U/L (45-117) H 12/13/21 02:16 Amylase 39 U/L (25-115) 12/12/21 11:50 Lipase 39 U/L (73-393) L 12/12/21 11:50 Home Medications: Simvastatin 20 mg PO BEDTIME 09/25/21 Venlafaxine HCl [Effexor] 1 tab PO BEDTIME 09/25/21 Amox/Clavulanate [Augmentin 875-125 Tab] 1 each PO BID #14 tab 12/13/21 New Medications: Amox/Clavulanate [Augmentin 875-125 Tab] 1 each PO BID #14 tab Diet: AHA Activity: Ad stephanie Followup: Saqib Mann DO [Primary Care Provider] - 1 Week
[2021-12-13 16:21] VITALS: TEMP 99
== END 2021-12-13 15:50 | disposition home or self-care (01) ==
LOC: ER 10:41 → INTOOBSV 16:44 → ERHOLD 16:44
PROVIDERS: ADMIT Internal Medicine; ATTEND Internal Medicine
DX: A41.9 Sepsis, unspecified organism (principal); J12.9 Viral pneumonia, unspecified; C50.919 Malignant neoplasm of unspecified site of unspecified female breast; I10 Essential (primary) hypertension; E78.5 Hyperlipidemia, unspecified; F41.9 Anxiety disorder, unspecified; Z20.822 Contact with and (suspected) exposure to COVID-19; Z80.9 Family history of malignant neoplasm, unspecified
CPT/HCPCS: 93005; 87040 ×2; 85025 ×2; 80048; 36415; 82150; 82550; 85610; 80076; 83605; 85730; 84484; 82553; 83690; 80053; 84145; 71045; 82805; 94760; 96375; 96374; 99284; U0003; J0456; J1650 ×2; J7050; J7030 ×2; J0692; G0378 ×3; 81003; 81015; J3370; J7040

== ENCOUNTER 2021-12-28 13:39 | Emergency (ER) | payer OTHER ==
--- OUTSIDE RECORDS SUMMARY | 2021-12-28 13:42 | XMS REPORT | Continuity of Care Document ---
:1960 Author Organization [facility] t Address [address] [place] [address] Care Team Providers Name Role Phone Ashish Mann Attending Clinician Unavailable Payers Payer Name Policy Type Policy Number Effective Date Expiration Date S don [employer] PPO I [id number] 00:00:00 Problems This patient has no known problems. Allergies, Adverse Reactions, Alerts Allergy Allergy Status Severity Reaction(s) Onset Inactive Treating Comm ents Source Name Type Date Date Clinician NO KNOWN Drug Active [facility] ALLERGIE Class [facility] Medications Ordered Filled Start Stop Current Ordering Indication Dosage Frequency Signature Comments Components Source Medication Medication Date Date Medication? Clinician (SIG) Name Name Venlafaxine Venlafaxine Yes Saqib [address] [facility] HCl Mann with food [facility] Simvastatin Simvastatin Yes Saqib [address] [facility] Immunizations Ordered Filled Immunization Date Status Comments Sourc e Immunization Name Name TDAP > 7 TDAP > 7 2020-01-[address] [facility] - [facility]-Adacel Years-Adacel 00:00:00 [facility] Afluria single dose Afluria single dose 2019-09-[address] [facility] - 00:00:00 [facility] Procedures This patient has no known procedures. Encounters Start End Encounter Admission Attending Care Care Encounter Source Date/Time Date/Time Type Type Clinicians Facility Department ID 2021-12-12 Outpatient Mann, [facility] [id number] [facility] 14:03:50 Saqib [id number] [facility] 2021-12-12 Outpatient Mann, [facility] 13[facility]09 Saqib [id number] [facility] 2021-12-12 Outpatient Mann, [facility] 13:13:59 Saqib [id number] [facility] 2021-12-12 Outpatient Mann, [facility] 13:09:08 Saqib [id number] [facility] 2021-12-12 Outpatient Mann, [facility] 13:08:53 Saqib [id number] [facility] 2021-12-12 Outpatient Mann, [facility] 12[facility]53:54 Saqib [id number] [facility] 2021-12-12 Outpatient Mann, [facility] 12:53:25 Saqib [id number] [facility] 2021-12-12 Outpatient Mann, [facility] 12[facility]41:09 Saqib [id number] [facility] 2021-12-12 Outpatient Mann, [facility] 12:40:48 Saqib [id number] [facility] 2021-12-12 Outpatient Mann, [facility] 12:25:15 Saqib [id number] [facility] 2021-12-12 Outpatient Mann, [facility] 12:01:54 Saqib [id number] [facility] 2021-12-12 Outpatient Mann, [facility] 12:01:36 Saqib [id number] [facility] 2021-12-12 Outpatient Mann, [facility] 11:54:59 Saqib [id number] [facility] 2021-12-12 Outpatient Mann, [facility] 11:26:43 Saqib [id number] [facility] 2021-12-12 Outpatient Mann, [facility] 11:13:34 Saqib [id number] [facility] 2021-09-26 2021-09-26 ambulatory [facility] [id number] [facility] 2021-09-13 2021-09-13 ambulatory [facility] [id number] [facility] 2021-09-06 2021-09-06 Outpatient [facility] [id number] [facility] 2021-09-06 2021-09-06 Outpatient [facility] [id number] [facility] 2021-08-01 2021-08-01 Outpatient [facility] [id number] [facility] 2021 2021 Outpatient [facility] [id number] [facility] 2021-07-20 2021-07-20 Outpatient [facility] [id number] [facility] 2021-07-17 2021-07-17 Outpatient [facility] [id number] [facility] 2021-07-16 2021-07-16 Outpatient [facility] [id number] [facility] 2021-07-12 2021-07-12 Outpatient [facility] [id number] [facility] 2021-07-12 2021-07-12 Outpatient [facility] [id number] [facility] 2021-07-05 2021-07-05 Outpatient [facility] [id number] [facility] 2021-06-18 2021-06-18 Outpatient [facility] [id number] [facility] 2021-05-07 2021-05-07 Outpatient [facility] [id number] [facility] 2021-03-06 2021-03-06 Outpatient [facility] [id number] [facility] 2021-02-14 2021-02-14 Outpatient [facility] [id number] [facility] 2021-01-31 2021-01-31 Outpatient [facility] [id number] [facility] 2021-01-24 2021-01-24 Outpatient [facility] [id number] [facility] 2020-12-18 2020-12-18 Outpatient [facility] [id number] [facility] 2020-11-20 2020-11-20 Outpatient [facility] [id number] [facility] 2020-11-12 2020-11-12 Emergency X [facility] ERT [id number] 14:25:00 14:25:00 [facility] 2020-11-01 2020-11-01 Outpatient [facility] [id number] [facility] 2020-10-26 2020-10-26 Outpatient [facility] [id number] [facility] 2020-10-18 2020-10-18 Outpatient [facility] [id number] [facility] 2020-10-04 2020-10-04 Outpatient [facility] [id number] [facility] 2020-09-20 2020-09-20 Outpatient [facility] [id number] [facility] 2020-08-30 2020-08-30 Outpatient [facility] [id number] [facility] 2020-05-02 2020-05-02 [facility] [id number] [facility] 09:30:00 09:30:[address] [facility] [employer] [facility] Clin[facility] 2020-02-02 2020-02-02 [facility] [id number] 16:55:00 16:55:00 t [employer] s - Drive [facility] Clinics 2020-01-31 2020-01-31 [facility] [id number] [facility] 09:30:00 09:30:00 t [employer] [facility] - Drive [facility] Medicine l Medicine Outpati ent Clinics 2019-09-28 2019-09-28 [facility] [id number] 09:30:00 09:30:00 [facility] [employer] [facility] Medicine Outpati ent Clinics Results This patient has no known results.
--- NOTE | 2021-12-28 15:17 | RAD REPORT ---
EXAM DESCRIPTION: RAD - Chest Single View - 12/28/2021 2:58 pm CLINICAL HISTORY: COUGH COMPARISON: Portable chest 12/12/2021 TECHNIQUE: AP portable chest image was obtained 12/28/2021 2:58 pm . FINDINGS: Lungs are clear. Lung parenchymal pattern matches comparison. Left-sided Port-A-Cath remai ns in place. Heart and vasculature are normal. No measurable pleural effusion and no pneumothorax. No acute bony abnormality seen. No acute aortic findings suspected. IMPRESSION: No acute cardiopulmonary process. No significant change from comparison study.
[2021-12-28] MEDS ORDERED: TBO-FILGRASTIM 480 MCG/0.8 ML SYR SQ ONE (18:00)
[2021-12-28 18:14] LABS: Urine Blood Negative (Negative); Urine Glucose Negative (Negative); Urine Protein Negative (Negative); Urine Specific Gravity 1.015 (1.005-1.030); Urine pH 5.5 (5.0-7.0)
[2021-12-28 18:20] LABS: Absolute Lymphocytes (CBC) 0.6 K/uL (0.7-4.9); Hematocrit 32.5 % (36.0-45.0); MPV 6.6 fL (7.6-11.3); RBC Red Blood Cell Count 3.49 M/uL (3.86-4.86)
[2021-12-28 18:23] LABS: Blood Morphology Comment NOT SEEN (NOT SEEN); Platelet Estimate ADEQ; White Blood Cell Scan OK (OK)
--- NOTE | 2021-12-28 18:41 | EDPHYS ---
Physician Documentation [facility] Name: Bernadette Thomas Age: 61 yrs Sex: Female : 1960 Arrival Date: 12/28/2021 Time: 13:44 Bed 8 Private MD: DOLLY Physician Darrin Frankel HPI: 12/28 18:02 This 61 yrs old Female presents to ER via Ambulatory with complaints of fili Abnormal Lab Results. 18:02 sent for cbc , ANC LESS THAN 100 2 DAYS AGO , ID=F LESS THAN 500 TODAY GIVE 480N fili GRANIX. Onset: The symptoms/episode began/occurred today. Severity of symptoms: At their worst the symptoms were very mild in the emergency department the symptoms are unchanged. Historical: - Allergies: 13:57 No Known Allergies; ll1 - PMHx: 13:57 breast cancer; high cholesteral; ll1 - PSHx: 13:57 Lumpectomy of breast; ll1 - Immunization history:: Client reports having NOT received the Covid vaccine. Flu vaccine status is unknown. - Social history:: Smoking status: Patient denies any tobacco usage or history of. ROS: 18:05 Constitutional: Negative for fever, chills, and weight loss, Eyes: Negative for injury, fili pain, redness, and discharge, ENT: Negative for injury, pain, and discharge, Neck: Negative for injury, pain, and swelling, Cardiovascular: Negative for chest pain, palpitations, and edema, Respiratory: Negative for shortness of breath, cough, wheezing, and pleuritic chest pain, Abdomen/GI: Negative for abdominal pain, nausea, vomiting, diarrhea, and constipation, Back: Negative for injury and pain, : Negative for injury, bleeding, discharge, and swelling, MS/Extremity: Negative for injury and deformity, Skin: Negative for injury, rash, and discoloration, Neuro: Negative for headache, weakness, numbness, tingling, and seizure, Psych: Negative for depression, anxiety, suicide ideation, homicidal ideation, and hallucinations, Allergy/Immunology: Negative for hives, rash, and allergies, Endocrine: Negative for neck swelling, polydipsia, polyuria, polyphagia, and marked weight changes, Hematologic/Lymphatic: Negative for swollen nodes, abnormal bleeding, and unusual bruising. Exam: 18:05 Constitutional: This is a well developed, well nourished patient who is awake, alert, fili and in no acute distress. Head/Face: Normocephalic, atraumatic. Eyes: Pupils equal round and reactive to light, extra-ocular motions intact. Lids and lashes normal. Conjunctiva and sclera are non-icteric and not injected. Cornea within normal limits. Periorbital areas with no swelling, redness, or edema. ENT: Nares patent. No nasal discharge, no septal abnormalities noted. Tympanic membranes are normal and external auditory canals are clear. Oropharynx with no redness, swelling, or masses, exudates, or evidence of obstruction, uvula midline. Mucous membranes moist. Neck: Trachea midline, no thyromegaly or masses palpated, and no cervical lymphadenopathy. Supple, full range of motion without nuchal rigidity, or vertebral point tenderness. No Meningismus. Chest/axilla: Normal chest wall appearance and motion. Nontender with no deformity. No lesions are appreciated. Cardiovascular: Regular rate and rhythm with a normal S1 and S2. No gallops, murmurs, or rubs. Normal PMI, no JVD. No pulse deficits. Respiratory: Lungs have equal breath sounds bilaterally, clear to auscultation and percussion. No rales, rhonchi or wheezes noted. No increased work of breathing, no retractions or nasal flaring. Abdomen/GI: Soft, non-tender, with normal bowel sounds. No distension or tympany. No guarding or rebound. No evidence of tenderness throughout. Back: No spinal tenderness. No costovertebral tenderness. Full range of motion. Female : Normal external genitalia. Skin: Warm, dry with normal turgor. Normal color with no rashes, no lesions, and no evidence of cellulitis. MS/ Extremity: Pulses equal, no cyanosis. Neurovascular intact. Full, normal range of motion. Neuro: Awake and alert, GCS 15, oriented to person, place, time, and situation. Cranial nerves II-XII grossly intact. Motor strength 5/5 in all extremities. Sensory grossly intact. Cerebellar exam normal. Normal gait. Psych: Awake, alert, with orientation to person, place and time. Behavior, mood, and affect are within normal limits. Vital Signs: 13:54 BP 119 / 65; Pulse 87; Resp 17; Temp 98.4; Pulse Ox 100% ; Weight 88 kg; Height 5 ft. 5 ll1 in. (165.10 cm); Pain 0/10; 19:26 BP 116 / 60; Pulse 70; Resp 14; Temp 98.4; Pulse Ox 100% on R/A; Pain 0/10; st1 13:54 Body Mass Index 32.28 (88.00 kg, 165.10 cm) ll1 MDM: 17:34 Patient medically screened. fili 18:05 Differential Diagnosis sepsis. Data reviewed: vital signs, nurses notes, lab test fili result(s), radiologic studies. Data interpreted: court monitor: rate is 87 beats/min, rhythm is regular, Pulse oximetry: on room air is 100 %. Test interpretation: by ED physician or midlevel provider: plain radiologic studies. Counseling: I had a detailed discussion with the patient and/or guardian regarding: the historical points, exam findings, and any diagnostic results supporting the discharge/admit diagnosis, lab results, radiology results, the need for outpatient follow up, for definitive care, an hurl shaker. 12/28 13:54 Order name: CBC with Diff; Complete Time: 18:38 [facility] 12/28 13:54 Order name: Comprehensive Metabolic Panel [facility] 12/28 13:54 Order name: Urine Culture [facility] 12/28 13:54 Order name: Lactate; Complete Time: 19:03 [facility] 12/28 18:13 Order name: Urine Dipstick-Ancillary; Complete Time: 18:16 EDMS 12/28 13:54 Order name: Chest Single View XRAY; Complete Time: 17:53 [facility] 12/28 13:54 Order name: Urine Dipstick-Ancillary (obtain specimen); Complete Time: 18:17 [facility] 12/28 18:23 Order name: CBC Smear Scan; Complete Time: 18:38 EDMS Administered Medications: 18:18 Not Given (no iv at this timee): NS 0.9% 500 ml IV at bolus once [facility] 18:40 CANCELLED (Duplicate Order): Neupogen 480 mcg Sub-Q once; GIVE IF anc IS LESS THAN 500 fili Disposition Summary: 12/28/21 18:40 Discharge Ordered Location: Home fili Problem: new fili Symptoms: have improved fili Condition: Stable fili Diagnosis - Neutropenia, unspecified fili Followup: fili - With: Private Physician - When: 2 - 3 days - Reason: Recheck today's complaints, Continuance of care, Re-evaluation by your physician Followup: fili - With: - When: 2 - 3 days - Reason: Recheck today's complaints, Continuance of care, Re-evaluation by your physician Discharge Instructions: - Discharge Summary Sheet fili - Neutropenia fili - Neutropenic Fever fili Forms: - Medication Reconciliation Form fili - Thank You Letter fili - Antibiotic Education fili - Prescription Opioid Use fili Signatures: Dispatcher [employer] EDDarrin Reich MD MD cha Lewis, Lynsay RN RN ll1 Claire Valencia RN jh6 Corrections: (The following items were deleted from the chart) 18:40 18:16 Neupogen 480 mcg Sub-Q once; GIVE IF anc IS LESS THAN 500 ordered. fili penn
--- NOTE | 2021-12-28 18:41 | ER ---
Nurse's Notes [facility] Name: Bernadette Thomas Age: 61 yrs Sex: Female : 1960 Arrival Date: 12/28/2021 Time: 13:44 Bed 8 Private MD: Diagnosis: Neutropenia, unspecified Presentation: 12/28 13:54 Chief complaint: Patient states: Sent in by Cancer center doctor for low WBC, labs ll1 drawn yesterday (labs drawn 1 week after chemo). Coronavirus screen: Client denies travel out of the [place] in the last 14 days. Coronavirus screen: Vaccine status: Patient reports being unvaccinated. At this time, the client does not indicate any symptoms associated with coronavirus-19. Ebola Screen: Patient denies travel to an Ebola-affected area in the 21 days before illness onset. Ebola Screen: Patient denies travel to an Ebola-affected area in the 21 days before illness onset. Initial Sepsis Screen: Does the patient meet any 2 criteria? No. Patient's initial sepsis screen is negative. Does the patient have a suspected source of infection? No. Patient's initial sepsis screen is negative. Risk Assessment: Do you want to hurt yourself or someone else? Patient reports no desire to harm self or others. Onset of symptoms is unknown. 13:54 Method Of Arrival: Ambulatory ll1 13:54 Acuity: JIMI 3 ll1 Triage Assessment: 13:57 General: Appears in no apparent distress. Behavior is calm, cooperative, appropriate ll1 for age. Pain: Denies pain. Neuro: No deficits noted. Cardiovascular: No deficits noted. Respiratory: No deficits noted. Historical: - Allergies: 13:57 No Known Allergies; ll1 - PMHx: 13:57 breast cancer; high cholesteral; ll1 - PSHx: 13:57 Lumpectomy of breast; ll1 - Immunization history:: Client reports having NOT received the Covid vaccine. Flu vaccine status is unknown. - Social history:: Smoking status: Patient denies any tobacco usage or history of. Screenin:18 Abuse screen: Denies threats or abuse. Nutritional screening: No deficits noted. jh6 Tuberculosis screening: No symptoms or risk factors identified. Fall Risk None identified. Assessment: 18:18 General: Appears in no apparent distress. Behavior is calm, cooperative. Pain: Denies jh6 pain. Vital Signs: 13:54 BP 119 / 65; Pulse 87; Resp 17; Temp 98.4; Pulse Ox 100% ; Weight 88 kg; Height 5 ft. 5 ll1 in. (165.10 cm); Pain 0/10; 19:26 BP 116 / 60; Pulse 70; Resp 14; Temp 98.4; Pulse Ox 100% on R/A; Pain 0/10; st1 13:54 Body Mass Index 32.28 (88.00 kg, 165.10 cm) 1 ED Course: 13:44 Patient arrived in ED. rg4 13:53 Darrin Frankel MD is Attending Physician. [facility] 13:57 Triage completed. 1 13:58 Arm band placed on. 1 14:58 Chest Single View XRAY In Process Unspecified. [facility] 17:31 Claire Valencia, RN is Primary Nurse. [facility] 18:18 Bed in low position. Call light in reach. Side rails up X 1. Adult w/ patient. [facility] 18:18 Initial lab(s) drawn, by nh, sent to lab. Urine collected: clean catch specimen, clear. [facility] 18:40 Radha Kirby MD is Referral Physician. [facility] 19:08 Primary Nurse role handed off by Claire Valencia, QIAN [facility] 19:17 Shira Garcia, QIAN is Primary Nurse. st1 19:28 No provider procedures requiring assistance completed. st1 19:29 Patient did not have IV access during this emergency room visit. st1 Administered Medications: 18:18 Not Given (no iv at this timee): NS 0.9% 500 ml IV at bolus once [facility] 18:40 CANCELLED (Duplicate Order): Neupogen 480 mcg Sub-Q once; GIVE IF anc IS LESS THAN 500 fili Outcome: 18:40 Discharge ordered by . [facility] 19:28 Discharged to home st1 19:28 Discharged to home ambulatory, with significant other. 19:28 Condition: good 19:28 Discharge instructions given to patient, family, Instructed on discharge instructions, follow up and referral plans. Demonstrated understanding of instructions, follow-up care. 19:29 Patient left the ED. st1 Signatures: Dispatcher [employer] EDNH Darrin Frankel MD MD cha Garcia, Rubi rg4 Freeman Saleem RN RN 1 Batsheva Magaña 9 Claire Valencia, RN RN jh6 Shira Garcia RN RN st1
[2021-12-28 19:08] LABS: ALT/SGPT 29 U/L (12-78); Albumin 3.3 g/dL (3.4-5.0); Alkaline Phosphatase 114 U/L (45-117); BUN Blood Urea Nitrogen 11 mg/dL (7-18); Bicarbonate 24 mmol/L (21-32); Bilirubin Total 0.5 mg/dL (0.2-1.0); Glucose Level 92 mg/dL (74-106); Potassium 3.7 mmol/L (3.5-5.1); Sodium Level 135 mmol/L (136-145)
[2021-12-28 19:21] LABS: AST/SGOT 16 U/L (15-37); Protein, Total 6.9 g/dL (6.4-8.2)
[2021-12-28 19:39] VITALS: TEMP 98.4; O2SAT 100
[2021-12-28 19:40] VITALS: BP 116/60
== END 2021-12-28 19:29 | disposition home or self-care (01) ==
LOC: ER 13:39
DX: D70.9 Neutropenia, unspecified (principal); E78.00 Pure hypercholesterolemia, unspecified
CPT/HCPCS: 36415; 71045; 80053; 81003; 83605; 85025; 87086; 87088; 99283; J1447

== ENCOUNTER 2024-11-01 10:56 | Emergency (ER) | payer OTHER ==
[2024-11-01] MEDS ORDERED: BUPIVACAINE 0.5% PF 10 ML VIAL ONE (11:29)
[2024-11-01] MEDS ORDERED: HYDROCODONE/APAP 7.5/325 MG TAB ONE (11:29)
[2024-11-01] MEDS ORDERED: LIDOCAINE 1% MPF 5 ML VIAL ONE (11:29)
[2024-11-01] MEDS ORDERED: TDAP (DIPHTH,PERTUSS(ACELL),TET VAC) 0.5 ML VIAL IMVAC ONE (13:44)
--- NOTE | 2024-11-01 13:49 | EDPHYS ---
Physician Documentation [facility] Name: Bernadette Thomas Age: 64 yrs Sex: Female : 1960 Arrival Date: 11/01/2024 Time: 10:56 Bed 15 Private MD: ED Physician Jenaro Tijerina HPI: 11/01 11:25 This 64 yrs old Female presents to ER via Ambulatory with complaints of Finger Injury. cp 11:25 The patient or guardian complains of injury, a laceration, pain, that is acute. The cp complaints affect the left small finger. Context: resulted from a crush injury, between wall and safe. 11:25 Onset: The symptoms/episode began/occurred just prior to arrival. Treatment prior to cp arrival includes: applying pressure to the affected area. Associated signs and symptoms: The patient has no apparent associated signs or symptoms. Historical: - Allergies: 11:25 No Known Allergies; rs5 - PMHx: 11:25 breast cancer; high cholesteral; rs5 - PSHx: 11:25 Lumpectomy of breast; rs5 - Immunization history:: Last tetanus immunization: unknown. - Infectious Disease History:: Denies. - Social history:: Smoking status: Patient denies any tobacco usage or history of. ROS: 11:30 Constitutional: history per hpi cp Exam: 11:33 Constitutional: The patient appears in no acute distress, alert, awake, well developed, cp well nourished, uncomfortable, 11:33 Head/Face: Normocephalic, atraumatic. cp 11:33 Chest/axilla: Inspection: normal, 11:33 Cardiovascular: Rate: normal, 11:33 Respiratory: the patient does not display signs of respiratory distress, Respirations: normal, no use of accessory muscles, no retractions, Breath sounds: are clear throughout, 11:33 Abdomen/GI: Inspection: abdomen appears normal, 11:33 Musculoskeletal/extremity: Extremities: noted in the distal phalanx of left small finger: laceration, pain, swelling, tenderness, There is no evidence of nail injury as nail appear intact w/o ecchymosis, Perfusion: the extremity is normally perfused throughout, the distal phalanx of left small finger decreased sensation, Vital Signs: 11:20 BP 145 / 84; Pulse 74; Resp 17; Temp 98(O); Pulse Ox 98% ; rs5 12:00 BP 130 / 82; Pulse 72; Resp 16; Pulse Ox 100% ; me1 13:00 BP 158 / 90; Pulse 72; Resp 15; Pulse Ox 100% ; me1 13:45 BP 130 / 81; Pulse 80; Resp 16; Temp 98.4; Pulse Ox 99% ; rs5 MDM: 11:19 Medical Screening Exam initiated 13:47 Data reviewed: vital signs, nurses notes, radiologic studies, plain films. 13:47 I considered the following discharge prescriptions or medication management in the emergency department Medications were administered in the Emergency Department. See MAR. Counseling: I had a detailed discussion with the patient and/or guardian regarding the historical points, exam findings, and any diagnostic results supporting the discharge/admit diagnosis, radiology results, the need for outpatient follow up, a hand specialist, to return to the emergency department if symptoms worsen or persist or if there are any questions or concerns that arise at home. 11/01 11:19 Order name: XRAY Finger-Thumb Left cp 11/01 13:46 Order name: Wound dressing; Complete Time: 14:00 cp 11/01 13:46 Order name: Finger Splint; Complete Time: 14:00 cp Administered Medications: 11:20 Drug: Hydrocodone-Acetaminophen PO (7.5 mg-325 mg) 1 tabs PO once; RASS on ADMIN: rs5 Combtv4, Very Agttd3, Agttd2, Rstlss1, AlertClm0, Drwsy-1, Lt Sdtn-2, Mod Sdtn-3, Dp Sdtn-4, UnArsble-5 Route: PO; 12:22 Follow up: Response: No adverse reaction; Pain is decreased rs5 13:42 Follow up: Response: No adverse reaction; Pain is decreased me1 13:41 Drug: Bupivacaine Infiltration (0.5 %) 10 ml 10 ml Infiltration once {Note: me1 Administered by PA. Lisha} Volume: 10 ml; Route: Infiltration; 14:10 Follow up: Response: No adverse reaction rs5 13:42 Drug: Lidocaine Infiltration (1 %) 10 ml 5 ml Infiltration once; to bedside {Note: me1 Administered by PA. Lisha} Volume: 5 ml; Route: Infiltration; 14:05 Follow up: Response: No adverse reaction rs5 13:52 Drug: Boostrix Tdap IM 0.5 ml IM once; as a single dose Route: IM; Site: left deltoid; me1 14:01 Follow up: Response: No adverse reaction rs5 Disposition: 18:11 Co-signature as Attending Physician, Jenaro CARRERA I reviewed the patient's care rn provided by the Advanced Practice Provider and agree with the diagnosis and treatment plan. Disposition Summary: 11/01/24 13:48 Discharge Ordered Notes: Location: Home cp Problem: new cp Symptoms: have improved cp Condition: Stable cp Diagnosis - Displaced fracture of distal phalanx of finger - left little finger cp - Laceration without foreign body of left little finger without damage to nail cp Followup: cp - With: Private Physician - When: 1 week - Reason: Wound Recheck Discharge Instructions: - Discharge Summary Sheet cp - Finger Fracture, Adult cp - Laceration Care, Adult cp Forms: - Medication Reconciliation Form cp - Antibiotic Education cp - Prescription Opioid Use cp - Patient Portal Instructions cp - Leadership Thank You Letter cp Prescriptions: - Augmentin 875-125 mg Oral Tablet - take 1 tablet ORAL route every 12 hours for 10 days; 20 tablet; Refills: 0, cp Product Selection Permitted - Tramadol 50 mg Oral Tablet - take 1 tablet ORAL route every 8 hours as needed; 12 tablet; Refills: 0, cp Product Selection Permitted Signatures: Dispatcher [employer] Jenaro Ye MD MD rn Page, Corey, PA PA cp Km Arias RN RN rs5 Marlen James RN RN me1
--- NOTE | 2024-11-01 13:49 | ER ---
Nurse's Notes [facility] Name: Bernadette Thomas Age: 64 yrs Sex: Female : 1960 Arrival Date: 11/01/2024 Time: 10:56 Bed 15 Private MD: Diagnosis: Displaced fracture of distal phalanx of finger-left little finger;Laceration without foreign body of left little finger without damage to nail Presentation: 11/01 11:20 Chief complaint: Patient states: "I smashed my left pinky when I was closing a safe and rs5 it hurts". 11:20 Coronavirus screen: At this time, the client does not indicate any symptoms associated rs5 with coronavirus-19. Ebola Screen: No symptoms or risks identified at this time. Initial Sepsis Screen: Does the patient meet any 2 criteria? No. Patient's initial sepsis screen is negative. Does the patient have a suspected source of infection? No. Patient's initial sepsis screen is negative. Risk Assessment: Do you want to hurt yourself or someone else? Patient reports no desire to harm self or others. Onset of symptoms was November 01, 2024. 11:20 Method Of Arrival: Ambulatory rs5 11:20 Acuity: JIMI 3 rs5 Triage Assessment: 14:00 Injury Description: Crush injury. me1 Historical: - Allergies: 11:25 No Known Allergies; rs5 - PMHx: 11:25 breast cancer; high cholesteral; rs5 - PSHx: 11:25 Lumpectomy of breast; rs5 - Immunization history:: Last tetanus immunization: unknown. - Infectious Disease History:: Denies. - Social history:: Smoking status: Patient denies any tobacco usage or history of. Screenin:00 [facility] ED Fall Risk Assessment (Adult) History of falling in the last 3 months, me1 including since admission No falls in past 3 months (0 pts) Confusion or Disorientation No (0 pts) Intoxicated or Sedated No (0 pts) Impaired Gait No (0 pts) Mobility Assist Device Used No (0 pt) Altered Elimination No (0 pt) Score/Fall Risk Level 0 - 2 = Low Risk Maintained a safe environment, Provided non-skid footwear, Hourly rounding (assess needs \\T\\ fall precautionary measures) done. Abuse screen: Denies threats or abuse. Nutritional screening: No deficits noted. Tuberculosis screening: No symptoms or risk factors identified. Assessment: 11:20 General: Appears in no apparent distress. uncomfortable, Behavior is calm, cooperative. rs5 Pain: Complains of pain in left pinky Pain currently is 9 out of 10 on a pain scale. Quality of pain is described as aching, Is continuous. Neuro: Level of Consciousness is awake, alert, obeys commands, Oriented to person, place, time, situation. Cardiovascular: Patient's skin is warm and dry. Respiratory: Airway is patent Respiratory effort is even, unlabored, Respiratory pattern is regular, symmetrical. GI: Abdomen is round non-distended, Abd is soft and non tender X 4 quads. : No signs and/or symptoms were reported regarding the genitourinary system. EENT: No signs and/or symptoms were reported regarding the EENT system. Derm: Skin is intact, Skin is pink, warm \\T\\ dry. Wound noted left pinky Wound is 0.5 c.m. lac noted to left pinky, no active bleeding noted. 11:20 Musculoskeletal: Range of motion: limited in left hand. rs5 11:37 Reassessment: Patient and/or family updated on plan of care and expected duration. Pain rs5 level reassessed. Patient is alert, oriented x 3, equal unlabored respirations, skin warm/dry/pink. 14:01 Injury Description: Crush injury sustained to palmar aspect of distal phalanx of left me1 little finger. Vital Signs: 11:20 BP 145 / 84; Pulse 74; Resp 17; Temp 98(O); Pulse Ox 98% ; rs5 12:00 BP 130 / 82; Pulse 72; Resp 16; Pulse Ox 100% ; me1 13:00 BP 158 / 90; Pulse 72; Resp 15; Pulse Ox 100% ; me1 13:45 BP 130 / 81; Pulse 80; Resp 16; Temp 98.4; Pulse Ox 99% ; rs5 ED Course: 11:01 Patient arrived in ED. mr 11:02 Darrin Martinez PA is PHCP. cp 11:02 Jenaro Tijerina MD is Attending Physician. cp 11:19 Km Arias, QIAN is Primary Nurse. rs5 11:25 Triage completed. rs5 12:00 Patient has correct armband on for positive identification. Bed in low position. Call me1 light in reach. Side rails up X2. Provided Education on: POC. Verbalized understanding.. Client placed on continuous cardiac and pulse oximetry monitoring. NIBP monitoring applied. Pulse ox on. NIBP on. 12:00 No provider procedures requiring assistance completed. Patient did not have IV access me1 during this emergency room visit. 12:51 XRAY Finger-Thumb Left In Process Unspecified. EDMS 14:00 Splint/sling/ice applied as appropriate. me1 Administered Medications: 11:20 Drug: Hydrocodone-Acetaminophen PO (7.5 mg-325 mg) 1 tabs PO once; RASS on ADMIN: rs5 Combtv4, Very Agttd3, Agttd2, Rstlss1, AlertClm0, Drwsy-1, Lt Sdtn-2, Mod Sdtn-3, Dp Sdtn-4, UnArsble-5 Route: PO; 12:22 Follow up: Response: No adverse reaction; Pain is decreased rs5 13:42 Follow up: Response: No adverse reaction; Pain is decreased me1 13:41 Drug: Bupivacaine Infiltration (0.5 %) 10 ml 10 ml Infiltration once {Note: me1 Administered by PA. Lisha} Volume: 10 ml; Route: Infiltration; 14:10 Follow up: Response: No adverse reaction rs5 13:42 Drug: Lidocaine Infiltration (1 %) 10 ml 5 ml Infiltration once; to bedside {Note: me1 Administered by Darrin Martinez PAMarv} Volume: 5 ml; Route: Infiltration; 14:05 Follow up: Response: No adverse reaction rs5 13:52 Drug: Boostrix Tdap IM 0.5 ml IM once; as a single dose Route: IM; Site: left deltoid; me1 14:01 Follow up: Response: No adverse reaction rs5 Medication: 14:01 Vaccine Information Statement (VIS) provided today. Questions and/or concerns me1 addressed. VIS edition date: June 22, 2021. Outcome: 13:48 Discharge ordered by MD. brown 14:02 Discharged to home ambulatory, with family, me1 14:02 Condition: stable 14:02 Discharge instructions given to patient, family, Instructed on discharge instructions, follow up and referral plans. medication usage, wound care, Demonstrated understanding of instructions, follow-up care, medications, wound care, Prescriptions given X 2, 14:03 Patient left the ED. me1 Signatures: Dispatcher [employer] EDMS Vishnu Ainsley, Reg Reg mr Darrin Martinez PA PA cp Sotelo, Ricky, RN RN rs5 Marlen James RN RN me1 Corrections: (The following items were deleted from the chart) 17:38 13:30 BP 130 / 81; Pulse 80bpm; Resp 16bpm; Pulse Ox 99%; Temp 98.4F; me1 rs5 17:39 13:52 Response: No adverse reaction me1 rs5
[2024-11-01 14:17] VITALS: BP 130/81; TEMP 98.4; O2SAT 99
--- NOTE | 2024-11-01 15:01 | RAD REPORT ---
EXAM: XR Finger-Thumb Left HISTORY: [facility] MAIN crush injury Bed: COMPARISON: None TECHNIQUE: 3 radiographic views of the LEFT fingers submitted. FINDINGS: Mildly displaced fracture at the tuft of the fifth digit distal phalanx anteriorly with melissa rounding soft tissue swelling. Joint alignment is maintained. No significant degenerative changes are present. IMPRESSION: Mildly displaced fracture at the tuft of the fifth digit distal phalanx.
== END 2024-11-01 14:03 | disposition home or self-care (01) ==
LOC: ER 10:56
PROC: 2W3KX1Z Immobilization of Left Finger using Splint (ICD-10-PCS; principal; 2024-11-01)
DX: S62.637A Displaced fracture of distal phalanx of left little finger, initial encounter for closed fracture (principal)
CPT/HCPCS: 73140; 96372; 99284; 29130; J2003